=== PATIENT | male | born 1950 | race Caucasian/White ===

== ENCOUNTER 2021-01-05 09:11 | Inpatient (IN) ==
[2021-01-05 09:21] VITALS: BMI 27.7
[2021-01-05] MEDS ORDERED: NS 1000 ML 1,000 ML IV ONE (09:23)
[2021-01-05] MEDS ORDERED: SOLU-Medrol 125 MG VIAL IVP ONE (09:23)
[2021-01-05] MEDS ORDERED: NS 1000 ML 1,000 ML ONE (09:24)
[2021-01-05] MEDS ORDERED: SOLU-Medrol 125 MG VIAL ONE (09:24)
[2021-01-05 09:48] LABS: BASOPHILS # (AUTO) 0.1 X10^3/uL (0.0-0.1); BASOPHILS % (AUTO) 0.7 % (0.2-1.0); EOSINOPHILS # (AUTO) 0.1 x10^3/uL (0.0-0.2); EOSINOPHILS % (AUTO) 1.2 % (0.9-2.9); HEMOGLOBIN 15.4 g/dL (13.5-18.0); LYMPHOCYTES # (AUTO) 0.4 X10^3/uL (1.3-2.9); LYMPHOCYTES % (AUTO) 3.1 % (21.0-51.0); MEAN CORPUSCULAR HEMOGLOBIN 30.7 pg (27.0-34.0); MEAN CORPUSCULAR HGB CONC 34.2 g/dL (33.0-35.0); MEAN CORPUSCULAR VOLUME 89.7 fL (80.0-100.0); MEAN PLATELET VOLUME 7.9 fL (7.4-11.0); MONOCYTES # (AUTO) 0.4 x10^3/uL (0.3-0.8); MONOCYTES % (AUTO) 3.5 % (0.0-13.0); NEUTROPHILS # (AUTO) 10.4 x10^3/uL (2.2-4.8); NEUTROPHILS % (AUTO) 91.5 % (42.0-75.0); PLATELET COUNT 177 X10^3/uL (150.0-450.0); RED BLOOD COUNT 5.01 X10^6/uL (4.7-6.0); RED CELL DISTRIBUTION WIDTH 13.5 % (11.6-16.5); WHITE BLOOD COUNT 11.3 X10^3/uL (3.6-10.0)
--- NOTE | 2021-01-05 09:53 | RAD ---
HISTORYCOVID LOW O2 SAT HTNSTUDYCHEST, 1 [id number]/19/2021FINDINGSThe trachea is midline normal heart size. There has been marked interval worsening with multiple patchy alveolar radiopacities with confluent zones in the left midlung zone of predominance in the periphery consistent with viral pneumonia. No pleural effusion or pneumothorax.IMPRESSIONNew multiple peripheral ground-glass and alveolar radiopacities involving the right lung with a new confluent area in the left midlung zone. Consider viral pneumoniaElectronically signed by: Tamar Bailey (Jan 05, 2021 09:50:43)
[2021-01-05 10:33] LABS: ABG ALLEN TEST POS; ABG BASE EXCESS 0.8 mmol/L (-2.0-2.0)
[2021-01-05 10:46] LABS: ALANINE AMINOTRANSFERASE 28 Units/L (12-78); ALBUMIN 2.1 g/dL (3.4-5.0); ALKALINE PHOSPHATASE 66 Units/L (46-116); ASPARTATE AMINO TRANSFERASE 25 Units/L (15-37); BLOOD UREA NITROGEN 18 mg/dL (7-18); CARBON DIOXIDE 30.3 mmol/L (21-32); CHLORIDE 105 mmol/L (98-107); COR CA(FOR HYPOALB) 9.5 mg/dL (8.5-10.1); CREATININE 1.09 mg/dL (0.70-1.30); SODIUM 141 mmol/L (136-145); TOTAL PROTEIN 5.9 g/dL (6.4-8.2); eGFR NON BLACK RACES > 60 (>60)
[2021-01-05] MEDS ORDERED: NS 100 ML IV 100 ML ONE (11:01)
--- NOTE | 2021-01-05 11:11 | DR.URIAD ---
HPI Time Seen Time Seen by Provider: 01/05/21 10:51 PCP Primary Care Physician: KHUSHBU Tong HPI Comment HPI Comment: A 70 y/o male presents with SOB since 3 days ago. He was diagnosed with COVID about 10 days ago. He was started on REMDESIVIR infusion and has completed it. He has developed worsening SOB since past 4 days with minimal non- productive cough. He has had no fever and denies chest pain.. Complaint Chief Complaint:: PT REPORTS TO HAVING COVID AND FINISHING UP HIS INFUSION ON SUNDAY , PT REPORTS TO FEELING BETTER ON SUNDAY THEN HE STARTED FEELING BAD ON SUNDAY , ( PT IS ON HOME O2 OF 2 LPM ) PT LUNGS ARE DIMINSHED , PT HAS O2 ON AT 4 LPM PER EMS ,PT IS NOT IN ANY DISTRESS PT C/O GOING TO THE BATHROOM AND HE HAS BEEN VERY SOB ,BR COVID-19 Coronavirus risk:travel/contact w/high risk person: No Has patient experienced Coronavirus symptoms: No Coronavirus symptoms experienced: Shortness of Breath Reviewed Nurses Notes Reviewed: Yes Source History Provided: Patient Mode of Arrival Mode of Arrival: Stretcher Timing Onset of Chief Complaint: 01/04/21 Context Recent Treated Infections: URI (COVID inffection) History of Respiratory: None Quality Quality of Cough: Nonproductive Rhinorrhea: None Shortness of Breath: Moderate Associated Signs and Symptoms Other Signs and Symptoms: Cough and Shortness of Breath PMH PMH Past Medical History: Yes Past Medical History: Hypertension Past Surgical History: No Family History History of Family Medical Conditions: Yes Family Medical History: Hypertension Social History Does patient currently use any type of tobacco product: No Have you used tobacco products in the last 12 months: No Type of Tobacco Use: None Does any household member use tobacco: No Alcohol Use: None Do you use any recreational Drugs:: No Lives With: Significant Other Lives Where: Home Travel Risk Coronavirus risk:travel/contact w/high risk person: No Has patient experienced Coronavirus symptoms: No Infectious screening In the last 2 months have you had wt loss of >10#?: NO Have you had fever, night sweats or hemotysis?: No Have you traveled outside the country in the last 6 months?: No Isolation: Standard ROS Review of Systems Constitutional: No Symptoms Reported Eyes: No Symptoms Reported ENTM: No Symptoms Reported Respiratoy: Non-Productive Cough and Short of Breath Cardiovascular: No Symptoms Reported Gastrointestinal/Abdominal: No Symptoms Reported Genitourinary: No Symptoms Reported Neurological: No Symptoms Reported Musculoskeletal: No Symptoms Reported Integumentary: No Symptoms Reported Hematologic/Lymphatic: No Symptoms Reported Endocrine: No Symptoms Reported Psychiatric: No Symptoms Reported PE Vital Signs Vitals: Temperature 97.1 F Pulse Rate 84 Respiratory Rate 22 Blood Pressure [Left Arm] 147/71 Blood Pressure 147/77 O2 Sat by Pulse Oximetry 92 General Limitations: No Limitations General Appearance: Alert and In No Apparent Distress Head Head Exam: Normal Inspection, Atraumatic and Normocephalic Eyes Eye exam: Normal Appearance and EOMI ENT ENT Exam: Normal Exam, Normal Oropharynx, Normal External Ear Exam and Mucous Membranes Moist Neck Neck Exam: Normal Inspection, Full ROM and Trachea Midline Chest Chest Inspection: Normal Inspection and Symmetric Chest Wall Rise Respiratory Respiratory Exam: Normal Lung Sounds Bilat and Accessory Muscle Use Cardiovascular Cardiovascular Exam: Regular Rate, Normal Rhythm, +S1 and +S2 Abdominal Exam Abdominal Exam: Normal Inspection, Normal Bowel Sounds and Soft Extremeties Extremities Exam: Normal Inspection and Full ROM Back Back Exam: Normal Inspection and Full ROM Neurologic Neurological Exam: Alert and Oriented X3 Psychiatric Psychiatric Exam: Normal Affect and Normal Mood Skin Skin Exam: Intact and Normal Color MDM Differential Diagnosis Differential Diagnosis: Pneumonia COURSE Reevaluation 1st: Improved Education/Counseling Education/Counseling: Patient, Education and Counseling Educated On: Treatment, Diagnosis, Prognosis and Needs for Follow Up ROR Labs Reviewed Laboratory Results Reviewed?: Yes Result Diagrams: 01/09/21 05:37 01/09/21 05:37 Laboratory: WBC 11.3 X10^3/uL (3.6-10.0) H 01/05/21 09:35 RBC 5.01 X10^6/uL (4.7-6.0) 01/05/21 09:35 Hgb 15.4 g/dL (13.5-18.0) 01/05/21 09:35 Hct 45.0 % (42.0-54.0) 01/05/21 09:35 MCV 89.7 fL (80.0-100.0) 01/05/21 09:35 MCH 30.7 pg (27.0-34.0) 01/05/21 09:35 MCHC 34.2 g/dL (33.0-35.0) 01/05/21 09:35 RDW 13.5 % (11.6-16.5) 01/05/21 09:35 Plt Count 177 X10^3/uL (150.0-450.0) 01/05/21 09:35 Plt Count Comment Adequate (ADEQUATE) 01/05/21 09:35 MPV 7.9 fL (7.4-11.0) 01/05/21 09:35 Neut % (Auto) 91.5 % (42.0-75.0) H 01/05/21 09:35 Lymph % (Auto) 3.1 % (21.0-51.0) L 01/05/21 09:35 [place] % (Auto) 3.5 % (0.0-13.0) 01/05/21 09:35 Eos % (Auto) 1.2 % (0.9-2.9) 01/05/21 09:35 Baso % (Auto) 0.7 % (0.2-1.0) 01/05/21 09:35 Neut # (Auto) 10.4 x10^3/uL (2.2-4.8) H 01/05/21 09:35 Lymph # (Auto) 0.4 X10^3/uL (1.3-2.9) L 01/05/21 09:35 [place] # (Auto) 0.4 x10^3/uL (0.3-0.8) 01/05/21 09:35 Eos # (Auto) 0.1 x10^3/uL (0.0-0.2) 01/05/21 09:35 Baso # (Auto) 0.1 X10^3/uL (0.0-0.1) 01/05/21 09:35 Absolute Nucleated RBC 0.0 /100WBC 01/05/21 09:35 Total Counted 100 01/05/21 09:35 Neutrophils % (Manual) 92 % (39-76) H 01/05/21 09:35 Lymphocytes % (Manual) 5 % (13-43) L 01/05/21 09:35 Monocytes % (Manual) 3 % (4-9) L 01/05/21 09:35 Plt Morphology Comment Normal (NORMAL) 01/05/21 09:35 RBC Morphology Normal (NORMAL) 01/05/21 09:35 D-Dimer 18.40 ug/ml (0.0-0.57) H* 01/05/21 09:35 Sample Site Lrad 01/05/21 10:27 ABG pH 7.470 (7.35-7.45) H 01/05/21 10:27 ABG pCO2 33.0 mmHg (35.0-45.0) L 01/05/21 10:27 ABG pO2 67.0 mmHg (80.0-100.0) L 01/05/21 10:27 ABG HCO3 24.0 mmol/L (22-26) 01/05/21 10:27 ABG O2 Saturation 94.0 % (90-100) 01/05/21 10:27 ABG Base Excess 0.8 mmol/L (-2.0-2.0) 01/05/21 10:27 [place] Test Pos 01/05/21 10:27 A-a Gradient 148.0 mmHg 01/05/21 10:27 FiO2 36.0 01/05/21 10:27 Blood Gas Comments Pt bijan well elj 01/05/21 10:27 Sodium 141 mmol/L (136-145) 01/05/21 09:35 Corrected Sodium TNP 01/05/21 09:35 Potassium 4.0 mmol/L (3.5-5.1) 01/05/21 09:35 Chloride 105 mmol/L (98-107) 01/05/21 09:35 Carbon Dioxide 30.3 mmol/L (21-32) 01/05/21 09:35 BUN 18 mg/dL (7-18) 01/05/21 09:35 Creatinine 1.09 mg/dL (0.70-1.30) 01/05/21 09:35 Est GFR (MDRD) Af Amer > 60 (>60) 01/05/21 09:35 Est GFR (MDRD) Non-Af > 60 (>60) 01/05/21 09:35 Glucose 90 mg/dL (65-99) 01/05/21 09:35 Calcium 8.0 mg/dL (8.5-10.1) L 01/05/21 09:35 Corrected Calcium 9.5 mg/dL (8.5-10.1) 01/05/21 09:35 Total Bilirubin 1.10 mg/dL (0.2-1.0) H 01/05/21 09:35 AST 25 Units/L (15-37) 01/05/21 09:35 ALT 28 Units/L (12-78) 01/05/21 09:35 Alkaline Phosphatase 66 Units/L (46-116) 01/05/21 09:35 Total Protein 5.9 g/dL (6.4-8.2) L 01/05/21 09:35 Albumin 2.1 g/dL (3.4-5.0) L 01/05/21 09:35 Globulin 3.8 g/dL (2.5-4.5) 01/05/21 09:35 Albumin/Globulin Ratio 0.6 Ratio (1.1-2.1) L 01/05/21 09:35 Opioid Opioid Risk Tool Age ( box if 16-45): No History of Preadolescent Sexual Abuse: No Total: 0 Total Score Risk Category: Low Risk Copyright: [facility] predicting aberrant behaviors Diagnosis Discharge Problem: COVID-19 virus infection, D-dimer, elevated, Pneumonia due to 2019-nCoV Pulmonary embolism Qualifiers: Pulmonary embolism type: unspecified Chronicity: acute Acute cor pulmonale presence: unspecified Qualified Code(s): I26.99 - Other pulmonary embolism without acute cor pulmonale Instructions Instructions: Pulmonary Embolism Forms: Excuse From Work or School Precautions for COVID19 Patient Portal Social Distancing
[2021-01-05 11:41] LABS: PLATELET MORPHOLOGY COMMENT NORMAL (NORMAL)
--- NOTE | 2021-01-05 11:50 | CT ---
HISTORYSOB, ELEVATED D-DIMERSTUDYCTA CHESTCOMPARISONNone availableTECHNIQUE.CT scan was performed following ALARA (As low as Reasonably Achievable).Coronal and Sagittal reformatted images were performed. Pulmonary angiogram was performed after the administration of contrast. 3D MIPS images were performed.FINDINGSThere are focal filling defects projecting in the segmental branches of the right lower lobe consistent with pulmonary embolism and extending distally with occlusion. There is also segmental left lower lobe filling defect and small occlusive left lower lobe distal filling defect. No filling defects are seen in the main pulmonary arteries.The right thyroid gland is mildly prominent with a dominant 14 millimeters nodule in the right. There is no axillary adenopathy. There are prevascular lymph nodes measuring in short axis 0.8 centimeters mthere is mild sub carinal adenopathy measuring in short axis 1.6 centimeters mthere is no pleural or pericardial effusions. There is no adrenal massesm no gallstones. The spleen is mildly prominentm the stomach is not distended. There is a right perihilar lymph node measuring approximately 1.6 centimeters.Lung windows there is bilateral confluent alveolar and ground-glass radiopacities consistent with viral pneumonia. No dominant lung massesBone windows there is no evidence of aggressive bone lesions. No acute fractures. Small old compression fracture of T7. Schmorl nodule along the superior endplate of [id number] are consistent with bilateral segmental pulmonary embolism to the lower lobes.Mild mediastinal and right hilar adenopathy as described aboveExtensive confluent ground-glass and alveolar radiopacities involving both lungs consistent with viral pneumonia.Electronically signed by: Tamar Bailey (Jan 05, 2021 11:47:17)
[2021-01-05] MEDS ORDERED: LOVENOX INJ 100 MG SYR SC ONE (13:11)
[2021-01-05] MEDS ORDERED: PERIACTIN TAB 4 MG PO PRN (13:50)
[2021-01-05] MEDS ORDERED: LOVENOX INJ 100 MG SYR SC SCH (14:00)
[2021-01-05] MEDS ORDERED: PHARMACY CONSULT - LOVENOX XX SCH (14:00)
[2021-01-05] MEDS ORDERED: PHARMACY CONSULT - IVERMECTIN XX SCH (14:00)
[2021-01-05] MEDS: CYTOTEC PO SCH ×2 (15:14→21:08)
[2021-01-05] MEDS: NS 1000 ML 1,000 ML IV SCH (15:14)
[2021-01-05] MEDS: SOLU-Medrol 125 MG VIAL IVP SCH ×2 (15:14→20:57)
[2021-01-05] MEDS: IVERMECTIN PO SCH (15:14)
[2021-01-05] MEDS: ASCORBIC ACID INJ MULTI-DOSE VIAL 1,500 MG in NS 100 ML IV 100 ML IV SCH ×2 (15:14→20:56)
[2021-01-05] MEDS ORDERED: PULMICORT NEB TX 0.5 MG NEB ONE (19:38)
[2021-01-05] MEDS ORDERED: BROVANA ONE (19:38)
[2021-01-05] MEDS: BROVANA IN SCH (20:20)
[2021-01-05] MEDS: PULMICORT NEB TX 0.5 MG NEB SCH (20:20)
[2021-01-05] MEDS: PROTONIX INJ 40 MG VIAL IVP SCH (20:56)
[2021-01-05] MEDS: ZINC SULFATE PO SCH (20:57)
[2021-01-05] MEDS: THIAMINE HCL INJ IVP SCH (20:57)
[2021-01-05] MEDS: MELATONIN PO SCH (20:58)
[2021-01-05] MEDS: PEPCID TAB 40 MG PO SCH (20:58)
[2021-01-05] MEDS: LOVENOX INJ 100 MG SYR SC SCH (20:58)
[2021-01-05] MEDS: VIBRAMYCIN PO SCH (20:58)
[2021-01-06] MEDS: ASCORBIC ACID INJ MULTI-DOSE VIAL 1,500 MG in NS 100 ML IV 100 ML IV SCH ×4 (02:10→20:42)
[2021-01-06] MEDS: SOLU-Medrol 125 MG VIAL IVP SCH ×4 (02:10→20:45)
[2021-01-06] MEDS: CYTOTEC PO SCH ×3 (06:00→22:15)
[2021-01-06 06:20] LABS: BASOPHILS % (AUTO) 0.4 % (0.2-1.0); HEMATOCRIT 42.4 % (42.0-54.0); HEMOGLOBIN 14.6 g/dL (13.5-18.0); LYMPHOCYTES # (AUTO) 0.3 X10^3/uL (1.3-2.9); LYMPHOCYTES % (AUTO) 3.3 % (21.0-51.0); MEAN CORPUSCULAR HEMOGLOBIN 30.9 pg (27.0-34.0); MEAN CORPUSCULAR HGB CONC 34.4 g/dL (33.0-35.0); MEAN CORPUSCULAR VOLUME 90.1 fL (80.0-100.0); MEAN PLATELET VOLUME 8.5 fL (7.4-11.0); MONOCYTES # (AUTO) 0.2 x10^3/uL (0.3-0.8); NEUTROPHILS # (AUTO) 9.2 x10^3/uL (2.2-4.8); NEUTROPHILS % (AUTO) 94.3 % (42.0-75.0); PLATELET COUNT 173 X10^3/uL (150.0-450.0); RED BLOOD COUNT 4.71 X10^6/uL (4.7-6.0); RED CELL DISTRIBUTION WIDTH 13.7 % (11.6-16.5); WHITE BLOOD COUNT 9.8 X10^3/uL (3.6-10.0)
[2021-01-06 06:51] LABS: ALANINE AMINOTRANSFERASE 30 Units/L (12-78); ALKALINE PHOSPHATASE 62 Units/L (46-116); ASPARTATE AMINO TRANSFERASE 26 Units/L (15-37); BLOOD UREA NITROGEN 25 mg/dL (7-18); CALCIUM 7.8 mg/dL (8.5-10.1); CARBON DIOXIDE 27.3 mmol/L (21-32); CHLORIDE 109 mmol/L (98-107); COR CA(FOR HYPOALB) 9.4 mg/dL (8.5-10.1); COR NA(FOR HYPERGLY) 144 mmol/L (136-145); CREATININE 0.97 mg/dL (0.70-1.30); SODIUM 143 mmol/L (136-145); TOTAL PROTEIN 5.6 g/dL (6.4-8.2); eGFR NON BLACK RACES > 60 (>60)
[2021-01-06 07:16] LABS: BAND NEUTROPHILS % 1 % (0-10); PLATELET MORPHOLOGY COMMENT NORMAL (NORMAL)
[2021-01-06] MEDS: IVERMECTIN PO SCH (08:45)
[2021-01-06] MEDS: LIPITOR TAB 80 MG PO SCH (08:45)
[2021-01-06] MEDS: LOVENOX INJ 100 MG SYR SC SCH ×2 (08:45→20:42)
[2021-01-06] MEDS: PROTONIX INJ 40 MG VIAL IVP SCH ×2 (08:46→20:43)
[2021-01-06] MEDS: THIAMINE HCL INJ IVP SCH ×2 (08:46→20:44)
[2021-01-06] MEDS: PEPCID TAB 40 MG PO SCH ×2 (08:46→20:43)
[2021-01-06] MEDS: VIBRAMYCIN PO SCH ×2 (08:47→20:43)
[2021-01-06] MEDS: ZINC SULFATE PO SCH ×2 (09:00→20:43)
[2021-01-06] MEDS ORDERED: VITAMIN A PO SCH (09:00)
[2021-01-06] MEDS ORDERED: VITAMIN D (1.25MG) PO SCH (09:00)
[2021-01-06] MEDS: FLOMAX PO SCH (09:00)
[2021-01-06] MEDS: NS 1000 ML 1,000 ML IV SCH (16:01)
[2021-01-06] MEDS: BROVANA IN SCH (20:32)
[2021-01-06] MEDS: PULMICORT NEB TX 0.5 MG NEB SCH (20:32)
[2021-01-06] MEDS: MELATONIN PO SCH (20:44)
[2021-01-07] MEDS: ASCORBIC ACID INJ MULTI-DOSE VIAL 1,500 MG in NS 100 ML IV 100 ML IV SCH ×4 (02:18→20:18)
[2021-01-07] MEDS: SOLU-Medrol 125 MG VIAL IVP SCH (02:18)
[2021-01-07] MEDS: CYTOTEC PO SCH ×3 (05:08→20:59)
[2021-01-07 07:06] LABS: ALANINE AMINOTRANSFERASE 29 Units/L (12-78); ALKALINE PHOSPHATASE 66 Units/L (46-116); ASPARTATE AMINO TRANSFERASE 24 Units/L (15-37); BLOOD UREA NITROGEN 29 mg/dL (7-18); CALCIUM 7.8 mg/dL (8.5-10.1); CARBON DIOXIDE 28.4 mmol/L (21-32); CHLORIDE 110 mmol/L (98-107); COR CA(FOR HYPOALB) 9.4 mg/dL (8.5-10.1); COR NA(FOR HYPERGLY) 146 mmol/L (136-145); SODIUM 145 mmol/L (136-145); TOTAL PROTEIN 5.3 g/dL (6.4-8.2); eGFR NON BLACK RACES > 60 (>60)
[2021-01-07 07:11] LABS: BASOPHILS % (AUTO) 0.2 % (0.2-1.0); HEMATOCRIT 40.7 % (42.0-54.0); HEMOGLOBIN 13.8 g/dL (13.5-18.0); LYMPHOCYTES # (AUTO) 0.3 X10^3/uL (1.3-2.9); LYMPHOCYTES % (AUTO) 2.7 % (21.0-51.0); MEAN CORPUSCULAR HEMOGLOBIN 30.5 pg (27.0-34.0); MEAN CORPUSCULAR HGB CONC 33.9 g/dL (33.0-35.0); MEAN PLATELET VOLUME 9.5 fL (7.4-11.0); MONOCYTES # (AUTO) 0.4 x10^3/uL (0.3-0.8); MONOCYTES % (AUTO) 3.4 % (0.0-13.0); NEUTROPHILS # (AUTO) 11.9 x10^3/uL (2.2-4.8); NEUTROPHILS % (AUTO) 93.7 % (42.0-75.0); PLATELET COUNT 179 X10^3/uL (150.0-450.0); RED BLOOD COUNT 4.53 X10^6/uL (4.7-6.0); RED CELL DISTRIBUTION WIDTH 13.1 % (11.6-16.5); WHITE BLOOD COUNT 12.7 X10^3/uL (3.6-10.0)
[2021-01-07 08:04] LABS: PLATELET MORPHOLOGY COMMENT NORMAL (NORMAL)
[2021-01-07] MEDS ORDERED: SOLU-Medrol 40 MG VIAL IVP SCH (09:00)
[2021-01-07] MEDS: PULMICORT NEB TX 0.5 MG NEB SCH ×2 (09:25→21:10)
[2021-01-07] MEDS: BROVANA IN SCH ×2 (09:25→21:10)
[2021-01-07] MEDS: DECADRON TAB PO SCH (09:47)
[2021-01-07] MEDS: FLOMAX PO SCH (09:47)
[2021-01-07] MEDS: IVERMECTIN PO SCH (09:47)
[2021-01-07] MEDS: PEPCID TAB 40 MG PO SCH ×2 (09:47→20:21)
[2021-01-07] MEDS: LIPITOR TAB 80 MG PO SCH (09:47)
[2021-01-07] MEDS: LOVENOX INJ 100 MG SYR SC SCH ×2 (09:48→20:18)
[2021-01-07] MEDS: VITAMIN A PO SCH (09:48)
[2021-01-07] MEDS: PROTONIX INJ 40 MG VIAL IVP SCH ×2 (09:48→20:21)
[2021-01-07] MEDS: ZINC SULFATE PO SCH ×2 (09:48→20:20)
[2021-01-07] MEDS: THIAMINE HCL INJ IVP SCH ×2 (09:48→20:22)
[2021-01-07] MEDS: VITAMIN D3 125 mcg (5,000 UNITS) PO SCH (09:48)
[2021-01-07] MEDS: NS 1000 ML 1,000 ML IV SCH (15:24)
[2021-01-07] MEDS: MELATONIN PO SCH (20:20)
[2021-01-08] MEDS: ASCORBIC ACID INJ MULTI-DOSE VIAL 1,500 MG in NS 100 ML IV 100 ML IV SCH ×4 (02:16→20:27)
[2021-01-08] MEDS: CYTOTEC PO SCH ×3 (05:05→21:20)
[2021-01-08 07:06] LABS: BASOPHILS % (AUTO) 0.3 % (0.2-1.0); HEMATOCRIT 39.3 % (42.0-54.0); HEMOGLOBIN 13.4 g/dL (13.5-18.0); LYMPHOCYTES # (AUTO) 0.5 X10^3/uL (1.3-2.9); LYMPHOCYTES % (AUTO) 5.2 % (21.0-51.0); MEAN CORPUSCULAR HEMOGLOBIN 30.5 pg (27.0-34.0); MEAN CORPUSCULAR HGB CONC 34.2 g/dL (33.0-35.0); MEAN CORPUSCULAR VOLUME 89.1 fL (80.0-100.0); MEAN PLATELET VOLUME 9.3 fL (7.4-11.0); MONOCYTES # (AUTO) 0.6 x10^3/uL (0.3-0.8); MONOCYTES % (AUTO) 6.3 % (0.0-13.0); NEUTROPHILS # (AUTO) 8.3 x10^3/uL (2.2-4.8); NEUTROPHILS % (AUTO) 88.2 % (42.0-75.0); PLATELET COUNT 191 X10^3/uL (150.0-450.0); RED BLOOD COUNT 4.41 X10^6/uL (4.7-6.0); RED CELL DISTRIBUTION WIDTH 13.4 % (11.6-16.5); WHITE BLOOD COUNT 9.5 X10^3/uL (3.6-10.0)
[2021-01-08 07:39] LABS: ALANINE AMINOTRANSFERASE 44 Units/L (12-78); ALBUMIN 1.9 g/dL (3.4-5.0); ALKALINE PHOSPHATASE 59 Units/L (46-116); ASPARTATE AMINO TRANSFERASE 35 Units/L (15-37); BLOOD UREA NITROGEN 27 mg/dL (7-18); CALCIUM 7.3 mg/dL (8.5-10.1); CHLORIDE 112 mmol/L (98-107); CREATININE 0.89 mg/dL (0.70-1.30); SODIUM 146 mmol/L (136-145); eGFR NON BLACK RACES > 60 (>60)
[2021-01-08] MEDS: BROVANA IN SCH ×2 (09:25→21:34)
[2021-01-08] MEDS: PULMICORT NEB TX 0.5 MG NEB SCH ×2 (09:25→21:34)
[2021-01-08] MEDS: ZINC SULFATE PO SCH ×2 (09:59→20:29)
[2021-01-08] MEDS: VITAMIN A PO SCH (10:00)
[2021-01-08] MEDS: VITAMIN D3 125 mcg (5,000 UNITS) PO SCH (10:00)
[2021-01-08] MEDS: LOVENOX INJ 100 MG SYR SC SCH (10:01)
[2021-01-08] MEDS: PROTONIX INJ 40 MG VIAL IVP SCH ×2 (10:01→20:29)
[2021-01-08] MEDS: THIAMINE HCL INJ IVP SCH ×2 (10:01→20:30)
[2021-01-08] MEDS: PEPCID TAB 40 MG PO SCH ×2 (10:01→20:30)
[2021-01-08] MEDS: LIPITOR TAB 80 MG PO SCH (10:02)
[2021-01-08] MEDS: IVERMECTIN PO SCH (10:02)
[2021-01-08] MEDS: FLOMAX PO SCH (10:03)
[2021-01-08] MEDS: DECADRON TAB PO SCH (10:03)
[2021-01-08] MEDS: LR 1000 ML IV 1,000 ML IV SCH ×2 (13:52→20:30)
[2021-01-08] MEDS ORDERED: ELIQUIS ONE (19:03)
[2021-01-08] MEDS: MELATONIN PO SCH (20:29)
[2021-01-08] MEDS: ELIQUIS PO SCH (20:30)
[2021-01-08] MEDS: ROBITUSSIN DM PO PRN (20:30)
[2021-01-09] MEDS: ASCORBIC ACID INJ MULTI-DOSE VIAL 1,500 MG in NS 100 ML IV 100 ML IV SCH ×2 (02:41→09:38)
[2021-01-09] MEDS: LR 1000 ML IV 1,000 ML IV SCH (04:35)
[2021-01-09] MEDS: ROBITUSSIN DM PO PRN (04:38)
[2021-01-09] MEDS: CYTOTEC PO SCH (05:04)
[2021-01-09 06:33] LABS: BASOPHILS % (AUTO) 0.1 % (0.2-1.0); EOSINOPHILS % (AUTO) 0.1 % (0.9-2.9); HEMATOCRIT 39.6 % (42.0-54.0); HEMOGLOBIN 13.5 g/dL (13.5-18.0); LYMPHOCYTES # (AUTO) 0.5 X10^3/uL (1.3-2.9); LYMPHOCYTES % (AUTO) 6.7 % (21.0-51.0); MEAN CORPUSCULAR HEMOGLOBIN 30.7 pg (27.0-34.0); MEAN CORPUSCULAR HGB CONC 34.2 g/dL (33.0-35.0); MEAN CORPUSCULAR VOLUME 89.7 fL (80.0-100.0); MEAN PLATELET VOLUME 9.7 fL (7.4-11.0); MONOCYTES # (AUTO) 0.6 x10^3/uL (0.3-0.8); MONOCYTES % (AUTO) 7.9 % (0.0-13.0); NEUTROPHILS # (AUTO) 6.5 x10^3/uL (2.2-4.8); NEUTROPHILS % (AUTO) 85.2 % (42.0-75.0); PLATELET COUNT 152 X10^3/uL (150.0-450.0); RED BLOOD COUNT 4.41 X10^6/uL (4.7-6.0); RED CELL DISTRIBUTION WIDTH 13.3 % (11.6-16.5); WHITE BLOOD COUNT 7.6 X10^3/uL (3.6-10.0)
[2021-01-09 06:51] LABS: ALANINE AMINOTRANSFERASE 78 Units/L (12-78); ALBUMIN 1.9 g/dL (3.4-5.0); ALKALINE PHOSPHATASE 68 Units/L (46-116); ASPARTATE AMINO TRANSFERASE 54 Units/L (15-37); BLOOD UREA NITROGEN 18 mg/dL (7-18); CALCIUM 7.4 mg/dL (8.5-10.1); CHLORIDE 111 mmol/L (98-107); COR CA(FOR HYPOALB) 9.1 mg/dL (8.5-10.1); CREATININE 0.77 mg/dL (0.70-1.30); SODIUM 143 mmol/L (136-145); eGFR NON BLACK RACES > 60 (>60)
[2021-01-09 09:26] LABS: PLATELET MORPHOLOGY COMMENT NORMAL (NORMAL)
[2021-01-09] MEDS: THIAMINE HCL INJ IVP SCH (09:39)
[2021-01-09] MEDS: VITAMIN D3 125 mcg (5,000 UNITS) PO SCH (09:40)
[2021-01-09] MEDS: VITAMIN A PO SCH (09:40)
[2021-01-09] MEDS: LIPITOR TAB 80 MG PO SCH (09:41)
[2021-01-09] MEDS: PROTONIX INJ 40 MG VIAL IVP SCH (09:41)
[2021-01-09] MEDS: PEPCID TAB 40 MG PO SCH (09:41)
[2021-01-09] MEDS: DECADRON TAB PO SCH (09:42)
[2021-01-09] MEDS: FLOMAX PO SCH (09:42)
[2021-01-09] MEDS: ELIQUIS PO SCH (09:42)
[2021-01-09] MEDS: ZINC SULFATE PO SCH (09:48)
[2021-01-09] MEDS: IVERMECTIN PO SCH (09:49)
[2021-01-09 15:44] VITALS: BP 153/68
== END 2021-01-09 14:10 | disposition home or self-care (01) | DRG 175 ==
LOC: ER 09:11 → MED/SURG 14:03
PROVIDERS: ADMIT Obstetrics & Gynecology Obstetrics; ATTEND Obstetrics & Gynecology Obstetrics
DX: R06.02 Shortness of breath; I26.94 Multiple subsegmental thrombotic pulmonary emboli without acute cor pulmonale; U07.1 COVID-19; I10 Essential (primary) hypertension; J12.82 Pneumonia due to coronavirus disease 2019